=== PATIENT | female | born 1970 | race American Indian/Alaskan Native ===

== ENCOUNTER 2018-06-15 13:05 | Emergency (ER) | payer OTHER ==
[2018-06-15 13:13] VITALS: BMI 28.8
[2018-06-15 13:15] VITALS: PULSE 88; RESP 18; TEMP 99.2
[2018-06-15] MEDS ORDERED: Sodium Chloride 0.9% 1,000 ML IV STA (13:27)
--- NOTE | 2018-06-15 13:27 | ED PDOC ---
Arrival/HPI - General Chief Complaint: GI Problem Time Seen by Provider: 06/15/18 13:20 Historian: Patient - History of Present Illness Narrative History of Present Illness (Text): 06/15/18 13:28 A 48 year old female, whose past medical history includes , presents to the emergency department complaining of lower abdominal pain since this morning upon waking up. Patient reports she was in normal state of health yesterday. She explains earlier this morning also experiencing 2 episodes of watery diarrhea, and attempted to vomit, however only mucous came out. She mentions recently having a cold, stating having symptoms of coughing and rhinorrhea. Patient mentions never having abdominal pain in the past. LMP: 5-6 months ago, denies being . Notes last night drinking only a smoothie, nothing unusual. Patient denies vaginal bleeding/discharge, hematuria, back pain, or any other complaints at this time. Denies any sick contacts or any recent travel. PMD: Dr. Osmany Lara Time/Duration: Other (began earlier this morning upon waking up.) Symptom Onset: Sudden Symptom Course: Unchanged Past Medical History - Provider Review Nursing Documentation Reviewed: Yes - Infectious Disease Hx of Infectious Diseases: None - Neurological Hx Migraine: Yes - Psychiatric Hx Substance Use: No - Anesthesia Hx Anesthesia: No Family/Social History - Physician Review Nursing Documentation Reviewed: Yes Family/Social History: No Known Family HX Smoking Status: Heavy Smoker > 10 Cigarettes Daily Hx Alcohol Use: Yes Frequency of alcohol use: Socially Hx Substance Use: No Allergies/Home Meds Allergies/Adverse Reactions: Allergies No Known Allergies Allergy (Verified 06/16/18 18:26) Review of Systems - Review of Systems Constitutional: absent: Fevers Eyes: absent: Vision Changes Respiratory: absent: SOB Cardiovascular: absent: Chest Pain Gastrointestinal: Diarrhea, Nausea, Vomiting. absent: Abdominal Pain, Constipation, Appetite Changes, Hematochezia, Hematemesis Genitourinary Female: absent: Dysuria, Frequency Musculoskeletal: absent: Back Pain Skin: absent: Rash Neurological: absent: Headache, Dizziness, Focal Weakness Psychiatric: absent: Anxiety, Depression Physical Exam - Physical Exam Narrative Physical Exam (Text): Head: Atraumatic. Normocephalic. Eyes: PERRL. EOMI. Conjunctivae are not pale. ENT: Mucous membranes are moist and intact. Oropharynx is clear and symmetric. Neck: Supple. Full ROM. No JVD. No lymphadenopathy. Cardiovascular: Regular rate. Regular rhythm. No murmurs, rubs, or gallops. Distal pulses are 2+ and symmetric. Pulmonary/Chest: No evidence of respiratory distress. Clear to auscultation bilaterally. No wheezing, rales or rhonchi. Abdominal: Mild epigastric pain to palpation. Soft and non-distended. There is no tenderness. No rebound, guarding, or rigidity. No organomegaly. Good bowel sounds. Back: No CVA tenderness. Extremities: No edema. No cyanosis. No clubbing. Full range of motion in all extremities. No calf tenderness. Skin: Skin is warm and dry. No petechiae. No purpura. Neurological: Alert, awake, and oriented to person, place, time, and situation. Normal speech. No focal motor or sensory deficits. Psychiatric: Good eye contact. Normal interaction, affect, and behavior. 06/15/18 13:36 Vital Signs Reviewed: Yes Vital Signs Temp Pulse Resp BP Pulse Ox 06/15/18 16:45 88 18 122/71 99 06/15/18 13:13 99.2 F 88 18 115/75 96 Temperature: Afebrile Blood Pressure: Normal Pulse: Regular Respiratory Rate: Normal Appearance: Positive for: Well-Appearing, Non-Toxic, Comfortable Pain Distress: None Mental Status: Positive for: Alert and Oriented X 3 Medical Decision Making ED Course and Treatment: 06/15/18 13:31 Impression: 48 year old female with lower abdominal pain. Physical exam shows mild epigastric pain upon palpation. Differential Diagnosis included but are not limited to: Gastroenteritis vs. Colitis vs. Gastritis. Progress Notes: 06/15/18 13:37 Patient afebrile. Patient with very minimal pain on evaluation. Pain not colicky. No lower abdominal pain noted on exam despite complaint. No vaginal bleeding or discharge. Urinalysis is negative dip. Labs pending, will continue serial exams. 06/15/18 15:40 Patient on re-exam is laying in bed crying stating she has abdominal pain, cannot localize. States pain comes and goes. No song's sign noted. Initial LFTs unremarkable. Pain resolved after Toradol. CT scan ordered as patient with colicky pain develop ? renal colic within differential diagnosis. 05/15/2018 15:41 Abd/Pelvis CT IMPRESSION: There is mural thickening throughout the colon consistent with colitis. This may be a chronic finding with fatty deposition in the wall of the colon. Clinical correlation is suggested. There are no mesenteri inflammatory changes. Dictator: Manuel Ness MD I have reviewed abnormal findings with patient in laymens terms. She is comfortable on re-examination, ambulatory, no nausea or fever. I have recommended admission to hospital based on abnormal CT findings associated with intermittent discomfort for serial exams, gi consultation, further workup. She states she has pets to take care of home and wishes to go home. I have advised her of indications of admission and risks of signing out against medical advice she expresses understanding of abnormal findings and recommendations. 06/15/18 16:49 Leaving Against Medical Advice (AMA): The patient is choosing to leave against medical advice. I have personally explained to the patient that choosing to do so may result in permanent bodily harm or . I have discussed at great length that without further evaluation and monitoring there may be unforeseen circumstances and/or deterioration causing permanent bodily harm or as a result of their choice. The patient is alert, oriented, and shows the mental capacity to make clear decisions regarding the patients health care at this time. The patient continues to wish to leave against medical advice. In light of the patients decision to leave against medical advice, follow-up has been arranged and the patient is aware of the importance to following up as instructed. The patient has been advised that they should return to the emergency room immediately if they change their mind at any time, or if their condition begins to change or worsen in any way. 06/19/18 07:40 - Lab Interpretations Lab Results: 06/15/18 14:05 06/15/18 14:05 Lab Results 06/15/18 14:05: Sodium 141, Potassium 3.9, Chloride 105, Carbon Dioxide 25, Anion Gap 15, BUN 8, Creatinine 0.8, Est GFR ( Amer) > 60, Est GFR (Non- Af Amer) > 60, Random Glucose 108, Calcium 8.8, Total Bilirubin 0.3, AST 22, ALT 23, Alkaline Phosphatase 100, Total Protein 8.1, Albumin 4.5, Globulin 3.6, Albumin/Globulin Ratio 1.2, Amylase 63, Lipase 47 06/15/18 14:05: Urine Color Yellow, Urine Appearance Cloudy, Urine pH 6.0, Ur Specific [place] > 1.030, Urine Protein 30 H, Urine Glucose (UA) Neg, Urine Ketones Negative, Urine Blood Small H, Urine Nitrate Negative, Urine Bilirubin Negative, Urine Urobilinogen 0.2, Ur Leukocyte Esterase Negative, Urine RBC 5 - 10, Urine WBC 0 - 2, Ur Epithelial Cells 1 - 3, Amorphous Sediment Moderate, Urine Bacteria Many, Urine Other Uyeast, Urine HCG, Qual Negative 06/15/18 14:05: WBC 9.3, RBC 4.30, Hgb 13.3, Hct 38.6, MCV 89.8, MCH 30.9, MCHC 34.5, RDW 13.3, Plt Count 204, MPV 9.2, Gran % 77.0 H, Lymph % (Auto) 18.6 L, [place] % (Auto) 3.9, Eos % (Auto) 0.3 L, Baso % (Auto) 0.2, Gran # 7.17 H, Lymph # (Auto) 1.7, [place] # (Auto) 0.4, Eos # (Auto) 0.0, Baso # (Auto) 0.02 I have reviewed the lab results: Yes - RAD Interpretation Radiology Orders: 06/15/18 14:13 ABD & PELVIS W/O PO OR IV CONT [CT] Stat - Medication Orders Current Medication Orders: Discontinued Medications Famotidine (Pepcid) 20 mg IVP STAT STA Stop: 06/15/18 13:28 Last Admin: 06/15/18 13:56 Dose: 20 mg IVP Administration Document 06/15/18 13:56 EQ (Rec: 06/15/18 13:56 EQ [email or web address] Charges for Administration # of IVP Administrations 1 Sodium Chloride (Sodium Chloride 0.9%) 1,000 mls @ 1,000 mls/hr IV .Q1H STA Stop: 06/15/18 14:26 Last Admin: 06/15/18 13:56 Dose: 1,000 mls/hr eMAR Start Stop Document 06/15/18 13:56 EQ (Rec: 06/15/18 13:56 EQ [email or web address] Intravenous Solution Start Date 06/15/18 Start Time 13:56 Ketorolac Tromethamine (Toradol) 30 mg IVP ONCE ONE Stop: 06/15/18 14:14 Last Admin: 06/15/18 14:26 Dose: 30 mg MAR Pain Assessment Document 06/15/18 14:26 EQ (Rec: 06/15/18 14:26 EQ [email or web address] Pain Reassessment Is this a pain reassessment? No Sleep Is patient sleeping during reassessment? No Presence of Pain Presence of Pain Yes IVP Administration Document 06/15/18 14:26 EQ (Rec: 06/15/18 14:26 EQ [email or web address] Charges for Administration # of IVP Administrations 1 - Scribe Statement The provider has reviewed the documentation as recorded by the Scribe Ivonne rAguello Provider Scribe Provider Scribe Attestation: All medical record entries made by the Scribe were at my direction and personally dictated by me. I have reviewed the chart and agree that the record accurately reflects my personal performance of the history, physical exam, medical decision making, and the department course for this patient. I have also personally directed, reviewed, and agree with the discharge instructions and disposition. Disposition/Present on Arrival - Present on Arrival Any Indicators Present on Arrival: No History of DVT/PE: No History of Uncontrolled Diabetes: No Urinary Catheter: No History of Decub. Ulcer: No History Surgical Site Infection Following: None - Disposition Have Diagnosis and Disposition been Completed?: Yes Diagnosis: Colitis, Abdominal pain Disposition: AGAINST MEDICAL ADVICE Disposition Time: 16:40 Patient Plan: Discharge Patient Problems: Current Active Problems Problem Status Onset Abdominal pain Acute Gastroenteritis Acute Hypokalemia Acute Nausea vomiting and diarrhea Acute Condition: GOOD Additional Instructions: It has been recommended to you that you be ADMITTED TO THE HOSPITAL for evaluation of abnormal CT scan and signs of "colitis". Risks have been reviewed with you. Outpatient antibiotic treatment is not felt to be sufficient for treatment due to the severity of pain that you have had. Please return immediately to the ER at any time for treatment. Prescriptions: Metronidazole 500 mg PO TID #21 tablet Referrals: Osmany Lara MD [Primary Care Provider] - Follow up with primary Forms: [employer] (Setswana)
[2018-06-15 14:13] LABS: URINE BILIRUBIN NEGATIVE (NEGATIVE); URINE COLOR YELLOW (YELLOW); URINE LEUKOCYTE ESTERASE NEGATIVE Leu/uL (NEGATIVE); URINE UROBILINOGEN 0.2 E.U./dL (<1 E.U./dL)
[2018-06-15 14:17] LABS: BASO # 0.02 K/mm3 (0.0-2.0); BASO % 0.2 % (0.0-3.0); EOS % 0.3 % (1.5-5.0); GRAN # 7.17 (1.4-6.5); HEMOGLOBIN 13.3 g/dL (12.0-16.0); LYMPH # 1.7 (1.2-3.4); LYMPH % 18.6 % (22.0-35.0); MEAN CELL VOLUME 89.8 fl (80.0-105.0); MEAN CORPUSCULAR HEMOGLOBIN 30.9 pg (25.0-35.0); MEAN CORPUSCULAR HGB CONC 34.5 g/dl (31.0-37.0); MEAN PLATELET VOLUME 9.2 fl (7.0-11.0); MONO # 0.4 (0.1-0.6); MONO % 3.9 % (1.0-6.0); RBC 4.3 10^6/uL (3.5-6.1); RED CELL DISTRIBUTION WIDTH 13.3 % (11.5-14.5); WHITE BLOOD COUNT 9.3 10^3/ul (4.5-11.0)
[2018-06-15 14:23] LABS: URINE APPEARANCE CLOUDY (CLEAR)
[2018-06-15 14:24] LABS: ALB/GLOB RATIO 1.2 (1.1-1.8); ALBUMIN 4.5 g/dL (3.0-4.8); ALT/SGPT 23 U/L (7-56); AMYLASE 63 U/L (35-125); AST/SGOT 22 U/L (14-36); BLOOD UREA NITROGEN 8 mg/dL (7-21); CALCIUM 8.8 mg/dL (8.4-10.5); GFR AFRICAN-AMERICAN > 60; GFR NON-AFRICAN AMERICAN > 60; LIPASE 47 U/L (23-300); URINE GLUCOSE (UA) NEG (NEGATIVE)
[2018-06-15 14:25] LABS: URINE BLOOD SMALL (NEGATIVE); URINE PROTEIN 30 mg/dL (<30 mg/dL)
[2018-06-15 14:29] LABS: HCG,QUALITATIVE URINE NEGATIVE (NEGATIVE); URINE AMORPHOUS SEDIMENT MODERATE; URINE BACTERIA MANY (NEG); URINE WBC 0 - 2 /hpf (0-6)
--- NOTE | 2018-06-15 15:42 | CT ---
Date of service: 06/15/2018 PROCEDURE: CT Abdomen and Pelvis without intravenous contrast HISTORY: severe colicky abdominal pain COMPARISON: None. TECHNIQUE: Without contrast. Contrast dose: Radiation dose: Total exam DLP = 684 mGy-cm. This CT exam was performed using one or more of the following dose reduction techniques: Automated exposure control, adjustment of the mA and/or kV according to patient size, and/or use of iterative reconstruction technique. FINDINGS: LOWER THORAX: Unremarkable. LIVER: Unremarkable. No gross lesion or ductal dilatation. GALLBLADDER AND BILE DUCTS: Unremarkable. PANCREAS: Unremarkable. No gross lesion or ductal dilatation. SPLEEN: Unremarkable. ADRENALS: Unremarkable. No mass. KIDNEYS AND URETERS: Unremarkable. No hydronephrosis. No solid mass. VASCULATURE: Unremarkable. No aortic aneurysm. BOWEL: There is mural thickening throughout the colon consistent with colitis. This may be a chronic finding with fatty deposition in the wall of the colon. Clinical correlation is suggested. There are no mesenteric inflammatory changes APPENDIX: Unremarkable. Normal appendix. PERITONEUM: Unremarkable. No free fluid. No free air. LYMPH NODES: Unremarkable. No enlarged lymph nodes. BLADDER: Unremarkable. REPRODUCTIVE: Unremarkable. BONES: No acute fracture. OTHER FINDINGS: None. IMPRESSION: There is mural thickening throughout the colon consistent with colitis. This may be a chronic finding with fatty deposition in the wall of the colon. Clinical correlation is suggested. There are no mesenteric inflammatory changes
[2018-06-15 17:45] VITALS: BP 122/71; O2SAT 99
== END 2018-06-15 17:27 | disposition left against medical advice (07) ==
LOC: ED 13:05
DX: K52.9 Noninfective gastroenteritis and colitis, unspecified (principal); R10.30 Lower abdominal pain, unspecified; F17.210 Nicotine dependence, cigarettes, uncomplicated
CPT/HCPCS: 74176; 80053; 81001; 82150; 83690; 84703; 85025; 96374; 96375; 99285; J1885; J7030

== ENCOUNTER 2018-06-16 18:16 | Inpatient (IN) | payer OTHER ==
[2018-06-16 18:31] VITALS: BMI 29.0
[2018-06-16] MEDS ORDERED: Sodium Chloride 0.9% 1,000 ML IV STA (18:35)
--- NOTE | 2018-06-16 18:39 | ED PDOC ---
Arrival/HPI - General Chief Complaint: GI Problem Time Seen by Provider: 06/16/18 18:24 Historian: Patient - History of Present Illness Narrative History of Present Illness (Text): 06/16/18 18:36 A 48 year old female, with no significant past medical history, presents to the emergency department with a complaint of 1 day duration abdominal pain, nausea, vomiting, and diarrhea. The patient reports that she was seen in the emergency department yesterday and advised admission, but the patient refused and signed out against medical advice. She denies travel or exposure. Her test from yesterday's visit was negative and her CT scan showed colitis. The patient is a smoker, non- drinker/drug user. The patient denies fevers, chills, headache , dizziness, sore throat, cough, chest pain, shortness of breath, dyspnea on exertion, neck/back pain, urinary changes or any other complaint. PMD: Dr. Lara Time/Duration: Other (Yesterday) Symptom Onset: Sudden Symptom Course: Unchanged Activities at Onset: Rest, Light Context: Home Associated Symptoms (Text): 06/16/18 18:47 Generalized crampy abdominal pain along with nausea vomiting and diarrhea beginning yesterday morning. She was seen in the emergency department yesterday and had a CT scan which showed colitis. She was advised admission but signed out AMA. Her test yesterday was negative. No fever or chills. No travel or exposure. No genitourinary symptoms. Patient reports she has not eaten since yesterday morning because of the severe vomiting and diarrhea. She does not appear dehydrated. Past Medical History - Provider Review Nursing Documentation Reviewed: Yes - Infectious Disease Hx of Infectious Diseases: None - Neurological Hx Migraine: Yes - Psychiatric Hx Substance Use: No - Anesthesia Hx Anesthesia: No Family/Social History - Physician Review Nursing Documentation Reviewed: Yes Family/Social History: No Known Family HX Smoking Status: Heavy Smoker > 10 Cigarettes Daily Hx Alcohol Use: Yes Frequency of alcohol use: Socially Hx Substance Use: No Allergies/Home Meds Allergies/Adverse Reactions: Allergies No Known Allergies Allergy (Verified 06/16/18 18:26) Review of Systems - Physician Review All systems were reviewed & negative as marked: Yes - Review of Systems Constitutional: absent: Fatigue, Fevers Respiratory: absent: SOB, Cough Cardiovascular: absent: Chest Pain, MORAN Gastrointestinal: Abdominal Pain, Diarrhea, Nausea, Vomiting. absent: Constipation Genitourinary Female: absent: Dysuria, Frequency, Hematuria, Urine Output Changes, Vaginal Bleeding (LMP 6 months ago), Vaginal Discharge Musculoskeletal: absent: Back Pain, Neck Pain Skin: absent: Rash Neurological: absent: Headache, Dizziness Physical Exam Vital Signs Temp Pulse Resp BP Pulse Ox 06/16/18 19:04 98.4 F 72 18 95 06/16/18 19:03 125/69 Temperature: Afebrile Blood Pressure: Normal Pulse: Regular Respiratory Rate: Normal Appearance: Positive for: Well-Appearing, Non-Toxic, Uncomfortable Pain Distress: Mild Mental Status: Positive for: Alert and Oriented X 3 - Systems Exam Head: Present: Atraumatic, Normocephalic Pupils: Present: PERRL Extroacular Muscles: Present: EOMI Conjunctiva: Present: Normal Mouth: Present: Moist Mucous Membranes Pharnyx: No: ERYTHEMA, EXUDATE, TONSILS ENLARGED Neck: Present: Normal Range of Motion Respiratory/Chest: Present: Clear to Auscultation, Good Air Exchange. No: Respiratory Distress, Accessory Muscle Use Cardiovascular: Present: Regular Rate and Rhythm, Normal S1, S2. No: Murmurs Abdomen: Present: Tenderness (Mild generalized abdominal tenderness ), Normal Bowel Sounds. No: Distention, Peritoneal Signs, Rebound, Guarding Back: Present: Normal Inspection. No: CVA Tenderness Upper Extremity: Present: Normal Inspection. No: Cyanosis, Edema Lower Extremity: Present: Normal Inspection. No: Edema Neurological: Present: GCS=15, CN II-XII Intact, Speech Normal, Motor Func Grossly Intact Skin: Present: Warm, Dry, Normal Color. No: Rashes Psychiatric: Present: Alert, Oriented x 3, Normal Insight, Normal Concentration Medical Decision Making ED Course and Treatment: 06/16/18 18:40 Impression: A 48 year old female presents to the emergency department with a complain of 1 day duration abdominal pain, nausea, vomiting, diarrhea. Plan: -- Labs -- Stool Culture -- Protonix, Toradol, Zofran, and IV Fluids -- Reassess and disposition Progress Notes: 06/16/18 19:44 Patient is feeling somewhat better, but does not feel as if she can go home. She does not appear ill. Her CT scan yesterday showed colitis only. I will make arrangements for medical observation. 06/16/18 20:04: Case discussed in detail with Dr. Chao, who requested that the hospitalist admit the patient. 06/16/18 20:09: Case discussed with medical voucher clerk. 06/16/18 20:25: Case discussed with Dr. Holm who will evaluate patient in the emergency department. - Lab Interpretations Lab Results: 06/16/18 18:55 06/16/18 18:55 Lab Results 06/16/18 18:55: Sodium 140, Potassium 3.3 L, Chloride 108 H, Carbon Dioxide 22, Anion Gap 13, BUN 6 L, Creatinine 0.6 L, Est GFR ( Amer) > 60, Est GFR ( Non-Af Amer) > 60, Random Glucose 107, Calcium 8.6, Magnesium 2.1, Total Bilirubin 0.3, AST 25, ALT 32, Alkaline Phosphatase 93, Total Protein 7.6, Albumin 4.1, Globulin 3.5, Albumin/Globulin Ratio 1.2, Lipase 49 06/16/18 18:55: WBC 6.8 D, RBC 4.11, Hgb 12.8, Hct 36.5, MCV 88.8, MCH 31.1, MCHC 35.1, RDW 12.9, Plt Count 191, MPV 9.6, Gran % 66.5, Lymph % (Auto) 27.5, [place] % (Auto) 4.4, Eos % (Auto) 1.5, Baso % (Auto) 0.1, Gran # 4.50, Lymph # ( Auto) 1.9, [place] # (Auto) 0.3, Eos # (Auto) 0.1, Baso # (Auto) 0.01 I have reviewed the lab results: Yes - Medication Orders Current Medication Orders: Discontinued Medications Sodium Chloride (Sodium Chloride 0.9%) 1,000 mls @ 1,000 mls/hr IV .Q1H STA Stop: 06/16/18 19:34 Last Admin: 06/16/18 19:00 Dose: 1,000 mls/hr eMAR Start Stop Document 06/16/18 19:00 GMI (Rec: 06/16/18 19:00 GMI [id number]) Intravenous Solution Start Date 06/16/18 Start Time 19:00 Ketorolac Tromethamine (Toradol) 15 mg IVP STAT STA Stop: 06/16/18 18:36 Last Admin: 06/16/18 19:28 Dose: 15 mg MAR Pain Assessment Document 06/16/18 19:28 CNR (Rec: 06/16/18 19:28 [id number] Pain Reassessment Is this a pain reassessment? No IVP Administration Document 06/16/18 19:28 CNR (Rec: 06/16/18 19:28 [id number] Charges for Administration # of IVP Administrations 1 Ondansetron HCl (Zofran Inj) 4 mg IVP STAT STA Stop: 06/16/18 18:36 Last Admin: 06/16/18 18:58 Dose: 4 mg IVP Administration Document 06/16/18 18:58 GMI (Rec: 06/16/18 18:59 GMI [id number]) Charges for Administration # of IVP Administrations 1 Pantoprazole Sodium (Protonix Inj) 40 mg IVP STAT STA Stop: 06/16/18 18:36 Last Admin: 06/16/18 19:28 Dose: 40 mg IVP Administration Document 06/16/18 19:28 CNR (Rec: 06/16/18 19:28 CNR [id number]) Charges for Administration # of IVP Administrations 1 Potassium Chloride (K-Dur 20 Meq Er Tab) 20 meq PO STAT STA Stop: 06/16/18 19:38 Last Admin: 06/16/18 19:45 Dose: 20 meq - Scribe Statement The provider has reviewed the documentation as recorded by the Tessy Maier Provider Scribe Attestation: All medical record entries made by the Tessy were at my direction and personally dictated by me. I have reviewed the chart and agree that the record accurately reflects my personal performance of the history, physical exam, medical decision making, and the department course for this patient. I have also personally directed, reviewed, and agree with the discharge instructions and disposition. Disposition/Present on Arrival - Present on Arrival Any Indicators Present on Arrival: No History of DVT/PE: No History of Uncontrolled Diabetes: No Urinary Catheter: No History of Decub. Ulcer: No History Surgical Site Infection Following: None - Disposition Have Diagnosis and Disposition been Completed?: Yes Diagnosis: Abdominal pain, Hypokalemia, Gastroenteritis, Nausea vomiting and diarrhea Disposition: HOSPITALIZED Disposition Time: 20:13 Patient Plan: Observation Patient Problems: Current Active Problems Problem Status Onset Abdominal pain Acute Gastroenteritis Acute Hypokalemia Acute Nausea vomiting and diarrhea Acute Condition: GOOD
[2018-06-16 19:09] LABS: BASO # 0.01 K/mm3 (0.0-2.0); BASO % 0.1 % (0.0-3.0); EOS # 0.1 (0.0-0.7); EOS % 1.5 % (1.5-5.0); GRAN # 4.5 (1.4-6.5); GRAN % 66.5 % (50.0-68.0); HEMOGLOBIN 12.8 g/dL (12.0-16.0); LYMPH # 1.9 (1.2-3.4); LYMPH % 27.5 % (22.0-35.0); MEAN CELL VOLUME 88.8 fl (80.0-105.0); MEAN CORPUSCULAR HEMOGLOBIN 31.1 pg (25.0-35.0); MEAN CORPUSCULAR HGB CONC 35.1 g/dl (31.0-37.0); MEAN PLATELET VOLUME 9.6 fl (7.0-11.0); MONO # 0.3 (0.1-0.6); MONO % 4.4 % (1.0-6.0); RBC 4.11 10^6/uL (3.5-6.1); RED CELL DISTRIBUTION WIDTH 12.9 % (11.5-14.5); WHITE BLOOD COUNT 6.8 10^3/ul (4.5-11.0)
[2018-06-16 19:14] LABS: ALB/GLOB RATIO 1.2 (1.1-1.8); ALBUMIN 4.1 g/dL (3.0-4.8); ALT/SGPT 32 U/L (7-56); AST/SGOT 25 U/L (14-36); BLOOD UREA NITROGEN 6 mg/dL (7-21); CALCIUM 8.6 mg/dL (8.4-10.5); GFR AFRICAN-AMERICAN > 60; GFR NON-AFRICAN AMERICAN > 60; LIPASE 49 U/L (23-300)
[2018-06-16] MEDS ORDERED: Potassium Chloride 20 mEq ER Tab PO STA (19:37)
--- NOTE | 2018-06-16 21:59 | CP.PCM.HP ---
History of Present Illness - History of Present Illness History of Present Illness: HPI for Dr Jose Luis Pratt D.O. PGY-1 C.C: abdmoinal pain with N/V/D HPI: 48 y/o female presents to the ED for mid abdominal pain for 3 days, 8/10, squeezing, no radiation, intermittent, no worsening or alleviating factors. Pain is associated with nausea, NBNB vomiting, watery diarrhea. Patient admits to having URI symptoms few days prior to these symptoms. She denied having similar symptoms in the past, no recent travel, no sick contacts but admits to having a dog, cat, turtle, and fish at her home. Patient visited [facility] yesterday for the same symptoms and refused admission and signed AMA as she has animals at home to feed as she stated. Patient left ED yesterday with Metronidazole prescription and took one dosethat caused her stomach upset and had to come to ED again. CT abdomen/pelvis done yesterday that showed colitis. Patient denied syptoms, fever, chills, hematemesis, hematochezia, cp, palpitation, rash, weight loss. PMH:migraine headache PSH:denied SocH: smoker, no alcohol, no drugs MEDS: none ALL: NKDA PMD: Dr Osmany Lara Present on Admission - Present on Admission Any Indicators Present on Admission: No Review of Systems - Constitutional Constitutional: absent: Chills, Fever, Headache, Malaise, Night Sweats, Weakness - EENT Eyes: absent: Diplopia, Discharge, Itchy Eyes, Loss of Peripheral Vision Ears: absent: Decreased Hearing, Ear Discharge Nose/Mouth/Throat: absent: Nasal Congestion, Nasal Trauma, Nose Pain - Cardiovascular Cardiovascular: absent: Chest Pain, Claudication, Diaphoresis, Orthopnea, Palpitations - Respiratory Respiratory: absent: Cough, Dyspnea, Dyspnea on Exertion - Gastrointestinal Gastrointestinal: Abdominal Pain, Cramping, Diarrhea, Nausea, Vomiting - Genitourinary Genitourinary: absent: Difficulty Urinating, Dysuria, Hematuria, Pyuria, Freq UTI - Menstruation Menstruation: absent: Amenorrhea - Musculoskeletal Musculoskeletal: absent: Arthralgias, Atrophy, Joint Swelling, Muscle Weakness, Myalgias, Neck Pain - Integumentary Integumentary: absent: Bleeding Lesions, Lesions, Rash - Neurological Neurological: absent: Dizziness, Numbness, Headaches, Tingling, Tremor - Psychiatric Psychiatric: absent: Anxiety, Hopelessness, Panic Attacks - Endocrine Endocrine: absent: Flushing, Polydipsia, Polyphagia, Polyuria - Hematologic/Lymphatic Hematologic: absent: Easy Bleeding, Easy Bruising Past Patient History - Infectious Disease Hx of Infectious Diseases: None - Past Social History Smoking Status: Heavy Smoker > 10 Cigarettes Daily - NEUROLOGICAL Hx Migraine: Yes - PSYCHIATRIC Hx Substance Use: No - SURGICAL HISTORY Hx Surgeries: No - ANESTHESIA Hx Anesthesia: No Meds Allergies/Adverse Reactions: Allergies Allergy/AdvReac Type Severity Reaction Status Date / Time No Known Allergies Allergy Verified 06/16/18 18:26 Physical Exam - Constitutional Appears: Non-toxic, In Acute Distress - Head Exam Head Exam: ATRAUMATIC, NORMAL INSPECTION, NORMOCEPHALIC - Eye Exam Eye Exam: EOMI, Normal appearance, PERRL Pupil Exam: NORMAL ACCOMODATION, PERRL - ENT Exam ENT Exam: Mucous Membranes Dry, Normal Oropharynx - Neck Exam Neck exam: Positive for: Normal Inspection - Respiratory Exam Respiratory Exam: Clear to Auscultation Bilateral, NORMAL BREATHING PATTERN - Cardiovascular Exam Cardiovascular Exam: REGULAR RHYTHM, +S1, +S2 - GI/Abdominal Exam GI & Abdominal Exam: Guarding, Hyperactive Bowel Sounds, Soft, Tenderness. absent: Bruit, Mass, Rebound - Extremities Exam Extremities exam: Negative for: calf tenderness, joint swelling, tenderness - Back Exam Back exam: NORMAL INSPECTION - Neurological Exam Neurological exam: Alert, CN II-XII Intact, Normal Gait, Oriented x3, Reflexes Normal - Skin Skin Exam: Dry, Intact, Normal Color, Warm Results - Vital Signs Recent Vital Signs: Last Vital Signs Temp 98.4 F 06/16/18 19:04 Pulse 72 06/16/18 19:04 Resp 18 06/16/18 19:04 BP 125/69 06/16/18 19:03 Pulse Ox 95 06/16/18 19:04 - Labs Result Diagrams: 06/17/18 06:45 06/17/18 06:45 Assessment & Plan - Assessment and Plan (Free Text) Assessment: 48 y/o female presents to the ED for abdominal pain x1 day associtaed with N/V/ D. CT abdomen shows colitis Plan: 1)Abominal pain: Likely viral gastroenteritis NPO Zofran N/V Morphine 2 mg pain prn Ketorolac 15 mg pain prn CBC, CMP NS @100 ML/hr fecal leukocytosis C diff ag culture stool, urine Urine tox FOBT test negative GI consulted 2)Hypokalemia K 3.3 K-dur given Protonix SCD Liquid diet vitals q8hr Case reviewed and discussed with the attenting Dr Holm. - Date & Time Date: 06/16/18 Time: 21:59
[2018-06-16] MEDS: Sodium Chloride 0.9% 1,000 ML IV SCH (23:10)
[2018-06-16 23:19] LABS: URINE BILIRUBIN SMALL (NEGATIVE); URINE BLOOD TRACE-INTACT (NEGATIVE); URINE GLUCOSE (UA) NEGATIVE (NEGATIVE); URINE LEUKOCYTE ESTERASE NEGATIVE Leu/uL (NEGATIVE); URINE PROTEIN 30 mg/dL (<30 mg/dL); URINE UROBILINOGEN 0.2 E.U./dL (<1 E.U./dL)
[2018-06-16 23:23] LABS: URINE APPEARANCE SL CLOUDY (CLEAR); URINE COLOR YELLOW (YELLOW)
[2018-06-16 23:35] LABS: URINE BACTERIA MOD (NEG); URINE WBC 0 - 2 /hpf (0-6)
[2018-06-17] MEDS: Morphine 4 mg/ml ISec IVP PRN ×5 (00:06→20:29)
[2018-06-17 07:25] LABS: BASO # 0.01 K/mm3 (0.0-2.0); BASO % 0.2 % (0.0-3.0); EOS # 0.2 (0.0-0.7); EOS % 4.2 % (1.5-5.0); GRAN # 3.17 (1.4-6.5); GRAN % 57.8 % (50.0-68.0); HEMOGLOBIN 11.4 g/dL (12.0-16.0); LYMPH # 1.7 (1.2-3.4); LYMPH % 30.7 % (22.0-35.0); MEAN CORPUSCULAR HEMOGLOBIN 30.6 pg (25.0-35.0); MEAN CORPUSCULAR HGB CONC 34.3 g/dl (31.0-37.0); MEAN PLATELET VOLUME 9.4 fl (7.0-11.0); MONO # 0.4 (0.1-0.6); MONO % 7.1 % (1.0-6.0); RBC 3.73 10^6/uL (3.5-6.1); RED CELL DISTRIBUTION WIDTH 13.1 % (11.5-14.5); WHITE BLOOD COUNT 5.5 10^3/ul (4.5-11.0)
[2018-06-17 07:44] LABS: ALB/GLOB RATIO 1.1 (1.1-1.8); ALBUMIN 3.2 g/dL (3.0-4.8); ALT/SGPT 20 U/L (7-56); AST/SGOT 19 U/L (14-36); BLOOD UREA NITROGEN 7 mg/dL (7-21); GFR AFRICAN-AMERICAN > 60; GFR NON-AFRICAN AMERICAN > 60
[2018-06-17 07:49] LABS: BARBITURATES, UR NEGATIVE (NEGATIVE); BENZODIAZEPINES, UR NEGATIVE (NEGATIVE); OPIATES, UR POSITIVE (NEGATIVE); PHENCYCLIDINE, UR NEGATIVE (NEGATIVE)
[2018-06-17] MEDS: metroNIDAZOLE IV 500 mg/100 ml 500 MG/100 ML BAG IVPB SCH ×3 (08:18→21:30)
[2018-06-17] MEDS: cefTRIAXone 1 gm 1 GM/100 ML BAG IVPB SCH ×2 (08:22→10:49)
[2018-06-17] MEDS: Sodium Chloride 0.9% 1,000 ML IV SCH ×2 (08:27→21:30)
[2018-06-17] MEDS ORDERED: Potassium Chloride 20 mEq ER Tab PO ONE (11:49)
--- NOTE | 2018-06-17 15:18 | CP.PCM.PN ---
<Nadir Cai - Last Filed: 06/17/18 15:15> Subjective - Date & Time of Evaluation Date of Evaluation: 06/17/18 Time of Evaluation: 10:00 - Subjective Subjective: PGY-[address] Muse. No acute events ntoed overnight. Patient still with nausea, vomiting and 1 episode of diarrhea this morning. She stated she saw blood on her toilet paper after wiping. Still complaining of left-sided abdominal pain. Attempted to eat breakfast but became nauseous. Denied chest pain, shortness of breath, fevers. Objective - Vital Signs/Intake and Output Vital Signs (last 24 hours): Temp Pulse Resp BP Pulse Ox 98.5 F 71 20 109/66 96 06/17/18 08:38 06/17/18 08:38 06/17/18 08:38 06/17/18 08:38 06/17/18 08:38 Intake and Output: 06/17/18 06/17/18 06:59 18:59 Intake Total 840 240 Balance 840 240 - Medications Medications: Current Medications Sodium Chloride (Sodium Chloride 0.9%) 1,000 mls @ 100 mls/hr IV .Q10H [facility] Last Admin: 06/17/18 08:27 Dose: 100 mls/hr Metronidazole (Flagyl) 500 mg in 100 mls @ 100 mls/hr IVPB Q8 [facility] PRN Reason: Protocol Last Admin: 06/17/18 13:38 Dose: 100 mls/hr Ceftriaxone Sodium (Rocephin 1 Gram Ivpb) 1 gm in 100 mls @ 100 mls/hr IVPB DAILY [facility] PRN Reason: Protocol Last Admin: 06/17/18 10:49 Dose: Not Given Morphine Sulfate (Morphine) 2 mg IVP Q4H PRN PRN Reason: Pain, moderate (4-7) Last Admin: 06/17/18 15:02 Dose: 2 mg Ondansetron HCl (Zofran Inj) 4 mg IVP Q6H PRN PRN Reason: Nausea/Vomiting - Labs Labs: 06/17/18 06:45 06/17/18 06:45 - Additional Findings Additional findings: - Constitutional Appears: Non-toxic, In Acute Distress - Head Exam Head Exam: ATRAUMATIC, NORMAL INSPECTION, NORMOCEPHALIC - Eye Exam Eye Exam: EOMI, Normal appearance, PERRL Pupil Exam: NORMAL ACCOMODATION, PERRL - ENT Exam ENT Exam: Mucous Membranes Dry, Normal Oropharynx - Neck Exam Neck exam: Positive for: Normal Inspection - Respiratory Exam Respiratory Exam: Clear to Auscultation Bilateral, NORMAL BREATHING PATTERN - Cardiovascular Exam Cardiovascular Exam: REGULAR RHYTHM, +S1, +S2 - GI/Abdominal Exam GI & Abdominal Exam: Hyperactive Bowel Sounds, Soft, left sided abdominal Tenderness. absent: Bruit, Mass, Rebound - Extremities Exam Extremities exam: Negative for: calf tenderness, joint swelling, tenderness - Back Exam Back exam: NORMAL INSPECTION - Neurological Exam Neurological exam: Alert, CN II-XII Intact, Normal Gait, Oriented x3, Reflexes Normal - Skin Skin Exam: Dry, Intact, Normal Color, Warm Assessment and Plan - Assessment and Plan (Free Text) Assessment: 48 y/o female with no significant PMHx presents to the ED for abdominal pain x1 day with N/V/D. CT abdomen from previous day prior to presentation showed colitis throughout the colon. Plan: Colitis -CT abd/pelvis w/o contrast showed: There is mural thickening throughout the colon consistent with colitis. This may be a chronic finding with fatty deposition in the wall of the colon. Clinical correlation is suggested. -Start metronidazole 500mg iv q8h -Start ceftriaxone 1g ivp qd -Morphine 2mg ivp q4h prn for pain -zofran 4mg ivp q6h prn for nausea/vomiting -liquid diet for now, advance as tolerated -esr elevated, cdiff negative, uds negative (collected after receiving morphine in ED thus positive for opiates), serum alcohol negative, lipase negative -stool occult positive * denies blood in stool, admits to streaks of blood on toilet paper -follow-up crp, stool culture, fecal leukocytes -GI consulted, Dr Carter Hypokalemia -secondary to vomiting -repleted, follow-up AM levels Prophylaxis Protonix 40mg iv qd SCD Liquid diet <Kristy Muse - Last Filed: 06/17/18 16:23> Objective - Vital Signs/Intake and Output Vital Signs (last 24 hours): Temp Pulse Resp BP Pulse Ox 98.5 F 71 20 109/66 96 06/17/18 08:38 06/17/18 08:38 06/17/18 08:38 06/17/18 08:38 06/17/18 08:38 Intake and Output: 06/17/18 06/17/18 06:59 18:59 Intake Total 840 240 Balance 840 240 - Medications Medications: Current Medications Sodium Chloride (Sodium Chloride 0.9%) 1,000 mls @ 100 mls/hr IV .Q10H [facility] Last Admin: 06/17/18 08:27 Dose: 100 mls/hr Metronidazole (Flagyl) 500 mg in 100 mls @ 100 mls/hr IVPB Q8 [facility] PRN Reason: Protocol Last Admin: 06/17/18 13:38 Dose: 100 mls/hr Ceftriaxone Sodium (Rocephin 1 Gram Ivpb) 1 gm in 100 mls @ 100 mls/hr IVPB DAILY [facility] PRN Reason: Protocol Last Admin: 06/17/18 10:49 Dose: Not Given Morphine Sulfate (Morphine) 2 mg IVP Q4H PRN PRN Reason: Pain, moderate (4-7) Last Admin: 06/17/18 15:02 Dose: 2 mg Ondansetron HCl (Zofran Inj) 4 mg IVP Q6H PRN PRN Reason: Nausea/Vomiting Pantoprazole Sodium (Protonix Inj) 40 mg IVP DAILY [facility] - Labs Labs: 06/17/18 06:45 06/17/18 06:45 Attending/Attestation - Attestation I have personally seen and examined this patient.: Yes I have fully participated in the care of the patient.: Yes I have reviewed all pertinent clinical information, including history, physical exam and plan: Yes Notes (Text): 06/17/18 16:20 58 year old female with no significant past medical history who presented with complaint of abdominal pain with nausea, vomiting and diarrhea. CT abd/pelvis shows mural thickening throughout the colon consistent with colitis. She is on iv antibiotics. CDif study is negative. Continue with liquid diet and advance as tolerated. GI evaluation is pending. Will replete and repeat lytes. Kristy Muse MD Hospitalist.
[2018-06-18] MEDS: Morphine 2 mg/ml ISec IVP PRN ×3 (00:27→17:21)
[2018-06-18] MEDS ORDERED: Morphine 2 mg/ml ISec IVP ONE (02:33)
[2018-06-18] MEDS ORDERED: Pantoprazole 20 mg EC Tab PO SCH (06:00)
[2018-06-18] MEDS: metroNIDAZOLE IV 500 mg/100 ml 500 MG/100 ML BAG IVPB SCH ×3 (06:48→22:30)
[2018-06-18 07:54] LABS: BASO # 0.01 K/mm3 (0.0-2.0); BASO % 0.2 % (0.0-3.0); EOS # 0.2 (0.0-0.7); EOS % 3.8 % (1.5-5.0); GRAN # 3.31 (1.4-6.5); GRAN % 54.6 % (50.0-68.0); HEMOGLOBIN 10.7 g/dL (12.0-16.0); LYMPH % 33.3 % (22.0-35.0); MEAN CELL VOLUME 87.5 fl (80.0-105.0); MEAN CORPUSCULAR HEMOGLOBIN 29.6 pg (25.0-35.0); MEAN CORPUSCULAR HGB CONC 33.9 g/dl (31.0-37.0); MEAN PLATELET VOLUME 9.8 fl (7.0-11.0); MONO # 0.5 (0.1-0.6); MONO % 8.1 % (1.0-6.0); RBC 3.61 10^6/uL (3.5-6.1); RED CELL DISTRIBUTION WIDTH 12.7 % (11.5-14.5); WHITE BLOOD COUNT 6.1 10^3/ul (4.5-11.0)
[2018-06-18 08:00] LABS: ALBUMIN 3.2 g/dL (3.0-4.8); ALT/SGPT 31 U/L (7-56); AST/SGOT 19 U/L (14-36); BLOOD UREA NITROGEN 4 mg/dL (7-21); CALCIUM 8.1 mg/dL (8.4-10.5); GFR AFRICAN-AMERICAN > 60; GFR NON-AFRICAN AMERICAN > 60
--- NOTE | 2018-06-18 08:05 | CP.PCM.CON ---
<Christiano Rowan - Last Filed: 06/18/18 11:27> History of Present Illness - History of Present Illness History of Present Illness: Gastroenterology Consult note For Dr. Raul Rowan PGY2 Chief Complaint: Abdominal pain Patient is a 48 F with a history of migraine headaches who presented with complaints of diarrhea and abdominal pain. Patient states night prior to bed she consumed a smoothie which consisted of orange juice and frozen fruit. She admits to diarrhea through the night into Monday when the abdominal pain was also present with diarrhea. Patient states the "twisting" abdominal pain was initially RLQ bilaterally without radiation, 10/10 on a pain scale, and exacerbated with movements. Patient states she took tylenol extra strength for relief however was unsuccessful. Patient states she went to the ED where she was told she had colitis and was given flagyl. However patient states she took two doses but still experienced a large amount of pain and decided to come back to the ED since she wasn't given any pain medications. Patient then returned Monday where she was admitted. At this point patient states the diarrhea had begin to improve slightly however the abdominal pain was still present. Over night patient admits to one episode of diarrhea and states the pain is currently 4/10. Patient has had no episodes of diarrhea overnight and is not nauseous. Denies fevers, chills, or previous episodes as such. Lab values: H&H on admission 13.3/38.6 now 10.7/31.6, ESR 33, Potassium 3.2, CRP >15, corrected calcium 8.7, AST 19, ALT 31 Imaging: CT abdomen/pelvis:There is mural thickening throughout the colon consistent with colitis. This may be a chronic finding with fatty deposition in the wall of the colon. Clinical correlation is suggested. There are no mesenteric inflammatory changes Review of Systems - Constitutional Constitutional: absent: Chills, Fever, Headache - Cardiovascular Cardiovascular: absent: Chest Pain, Dyspnea - Respiratory Respiratory: absent: Cough, Dyspnea - Gastrointestinal Gastrointestinal: Abdominal Pain, Diarrhea. absent: Constipation, Hematochezia , Melena, Nausea, Vomiting - Genitourinary Genitourinary: absent: Dysuria - Musculoskeletal Musculoskeletal: absent: Numbness - Neurological Neurological: absent: Dizziness - Psychiatric Psychiatric: absent: Anxiety - Endocrine Endocrine: Fatigue Past Patient History - Infectious Disease Hx of Infectious Diseases: None - Past Social History Smoking Status: Heavy Smoker > 10 Cigarettes Daily - NEUROLOGICAL Hx Migraine: Yes - MUSCULOSKELETAL/RHEUMATOLOGICAL Hx Falls: No - GENITOURINARY/GYNECOLOGICAL Other/Comment: miscarriage - PSYCHIATRIC Hx Substance Use: No - SURGICAL HISTORY Hx Surgeries: No - ANESTHESIA Hx Anesthesia: No Meds Allergies/Adverse Reactions: Allergies Allergy/AdvReac Type Severity Reaction Status Date / Time No Known Allergies Allergy Verified 06/16/18 18:26 - Medications Medications: Current Medications Sodium Chloride (Sodium Chloride 0.9%) 1,000 mls @ 100 mls/hr IV .Q10H [facility] Last Admin: 06/17/18 21:30 Dose: 100 mls/hr Metronidazole (Flagyl) 500 mg in 100 mls @ 100 mls/hr IVPB Q8 [facility] PRN Reason: Protocol Last Admin: 06/18/18 06:48 Dose: 100 mls/hr Ceftriaxone Sodium (Rocephin 1 Gram Ivpb) 1 gm in 100 mls @ 100 mls/hr IVPB DAILY [facility] PRN Reason: Protocol Last Admin: 06/17/18 10:49 Dose: Not Given Morphine Sulfate (Morphine) 2 mg IVP Q4H PRN PRN Reason: Pain, moderate (4-7) Stop: 06/19/18 23:04 Last Admin: 06/18/18 00:27 Dose: 2 mg Ondansetron HCl (Zofran Inj) 4 mg IVP Q6H PRN PRN Reason: Nausea/Vomiting Last Admin: 06/17/18 19:12 Dose: 4 mg Pantoprazole Sodium (Protonix Inj) 40 mg IVP DAILY [facility] Physical Exam - Head Exam Head Exam: ATRAUMATIC, NORMAL INSPECTION, NORMOCEPHALIC - Eye Exam Eye Exam: EOMI, Normal appearance - ENT Exam ENT Exam: Mucous Membranes Moist, Normal Exam - Respiratory Exam Respiratory Exam: Clear to Auscultation Bilateral, NORMAL BREATHING PATTERN - Cardiovascular Exam Cardiovascular Exam: REGULAR RHYTHM, +S1, +S2 - GI/Abdominal Exam GI & Abdominal Exam: Normal Bowel Sounds, Soft, Tenderness (diffuse'). absent: Distended, Firm, Rigid - Rectal Exam Rectal Exam: NORMAL INSPECTION. absent: Deferred, Black Stool, Bloody Stool, Hemorrhoids, Fecal Impaction - Extremities Exam Extremities exam: Positive for: normal inspection - Back Exam Back exam: NORMAL INSPECTION - Neurological Exam Neurological exam: Alert, Oriented x3 - Psychiatric Exam Psychiatric exam: Normal Affect, Normal Mood - Skin Skin Exam: Intact, Normal Color, Warm Results - Vital Signs Recent Vital Signs: Last Vital Signs Temp 98.6 F 06/18/18 06:00 Pulse 70 06/18/18 06:00 Resp 20 06/18/18 06:00 BP 123/70 06/18/18 06:00 Pulse Ox 98 06/18/18 06:00 - Labs Result Diagrams: 06/18/18 06:45 06/18/18 06:45 Labs: Laboratory Results - last 24 hr 06/17/18 06/17/18 06/17/18 06:45 08:00 12:00 WBC RBC Hgb Hct MCV MCH MCHC RDW Plt Count MPV Gran % Lymph % (Auto) [place] % (Auto) Eos % (Auto) Baso % (Auto) Gran # Lymph # (Auto) [place] # (Auto) Eos # (Auto) Baso # (Auto) ESR 33 H Sodium Potassium Chloride Carbon Dioxide Anion Gap BUN Creatinine Est GFR ( Amer) Est GFR (Non-Af Amer) Random Glucose Calcium Total Bilirubin AST ALT Alkaline Phosphatase C-React Prot High Sens > 15.00 H Total Protein Albumin Globulin Albumin/Globulin Ratio Alcohol, Quantitative < 10 06/18/18 06/18/18 06:45 06:45 WBC 6.1 RBC 3.61 Hgb 10.7 L Hct 31.6 L MCV 87.5 MCH 29.6 MCHC 33.9 RDW 12.7 Plt Count 182 MPV 9.8 Gran % 54.6 Lymph % (Auto) 33.3 [place] % (Auto) 8.1 H Eos % (Auto) 3.8 Baso % (Auto) 0.2 Gran # 3.31 Lymph # (Auto) 2.0 [place] # (Auto) 0.5 Eos # (Auto) 0.2 Baso # (Auto) 0.01 ESR Sodium 141 Potassium 3.2 L Chloride 108 H Carbon Dioxide 21 Anion Gap 14 BUN 4 L Creatinine 0.6 L Est GFR ( Amer) > 60 Est GFR (Non-Af Amer) > 60 Random Glucose 86 Calcium 8.1 L Total Bilirubin 0.3 AST 19 ALT 31 Alkaline Phosphatase 79 C-React Prot High Sens Total Protein 6.3 Albumin 3.2 Globulin 3.1 Albumin/Globulin Ratio 1.0 L Alcohol, Quantitative Assessment & Plan - Assessment and Plan (Free Text) Assessment: Patient is a 48 F with a history of migraine headaches who presented with complaints of diarrhea and abdominal pain found to have colitis. Plan: Abdominal pain and diarrhea secondary to colitis most likely of infectious etiology -Continue with rocephin and flagyl -Rectal exam negative -Monitor H&H -Replete electrolytes as needed <Raul,Kovil V - Last Filed: 06/18/18 19:35> Meds - Medications Medications: Current Medications Metronidazole (Flagyl) 500 mg in 100 mls @ 100 mls/hr IVPB Q8 [facility] PRN Reason: Protocol Last Admin: 06/18/18 13:30 Dose: 100 mls/hr Ceftriaxone Sodium (Rocephin 1 Gram Ivpb) 1 gm in 100 mls @ 100 mls/hr IVPB DAILY [facility] PRN Reason: Protocol Last Admin: 06/18/18 10:03 Dose: 100 mls/hr Potassium Chloride 20 meq/ (Sodium Chloride) 1,010 mls @ 100 mls/hr IV .Q10H6M [facility] Last Admin: 06/18/18 10:23 Dose: 100 mls/hr Morphine Sulfate (Morphine) 2 mg IVP Q4H PRN PRN Reason: Pain, moderate (4-7) Stop: 06/19/18 23:04 Last Admin: 06/18/18 17:21 Dose: 2 mg Ondansetron HCl (Zofran Inj) 4 mg IVP Q6H PRN PRN Reason: Nausea/Vomiting Last Admin: 06/17/18 19:12 Dose: 4 mg Pantoprazole Sodium (Protonix Inj) 40 mg IVP DAILY [facility] Last Admin: 06/18/18 10:03 Dose: 40 mg Results - Vital Signs Recent Vital Signs: Last Vital Signs Temp 98.7 F 06/18/18 14:00 Pulse 64 06/18/18 14:00 Resp 18 06/18/18 14:00 BP 127/73 06/18/18 14:00 Pulse Ox 95 06/18/18 14:00 - Labs Result Diagrams: 06/18/18 06:45 06/18/18 06:45 Attending/Attestation - Attestation I have personally seen and examined this patient.: Yes I have fully participated in the care of the patient.: Yes I have reviewed all pertinent clinical information: Yes Notes (Text): This is an addendum to GI consult report dictated by the Project Manager Finance.The patient was seen and evaluated earlier. Medical records, lab studies, imagings were reviewed. Last 24 hours events reviewed. Agreed with the above treatment plan as outlined in Project Manager Finance 's notes with the addition of the following Acute onset of abdominal pain and diarrhea CT scan was reviewed diffuse colitis Clinical picture is more suggestive of infectious colitis Would continue antibiotics Follow-up cultures Clear liquid diet 06/18/18 19:34
--- NOTE | 2018-06-18 08:24 | CP.PCM.PN ---
<Baltazar Rebolledo - Last Filed: 06/18/18 12:56> Subjective - Date & Time of Evaluation Date of Evaluation: 06/18/18 Time of Evaluation: 08:23 - Subjective Subjective: Baltazar Jacomeel DO PGY1 Internal Medicine [employer] - Hospital Progress Note Pt. seen and examined at bedside this morning. She reported some improvement from admission however, she still states that abdominal pain comes and goes. Admits to some nausea and x1 episode of NBNB vomit yesterday. Diarrhea improving; presenting more so as soft stools mixed with water. No issue w/ CLD however we will continue to monitor tolerance to full liquid diet. 12 system ROS otherwise unremarkable. Objective - Vital Signs/Intake and Output Vital Signs (last 24 hours): Temp Pulse Resp BP Pulse Ox 98.6 F 70 20 123/70 98 06/18/18 06:00 06/18/18 06:00 06/18/18 06:00 06/18/18 06:00 06/18/18 06:00 Intake and Output: 06/18/18 06/18/18 06:59 18:59 Intake Total 2580 Balance 2580 - Medications Medications: Current Medications Sodium Chloride (Sodium Chloride 0.9%) 1,000 mls @ 100 mls/hr IV .Q10H [facility] Last Admin: 06/17/18 21:30 Dose: 100 mls/hr Metronidazole (Flagyl) 500 mg in 100 mls @ 100 mls/hr IVPB Q8 [facility]STOP[facility] PRN Reason: Protocol Last Admin: 06/18/18 06:48 Dose: 100 mls/hr Ceftriaxone Sodium (Rocephin 1 Gram Ivpb) 1 gm in 100 mls @ 100 mls/hr IVPB DAILY [facility] PRN Reason: Protocol Last Admin: 06/17/18 10:49 Dose: Not Given Morphine Sulfate (Morphine) 2 mg IVP Q4H PRN PRN Reason: Pain, moderate (4-7) Stop: 06/19/18 23:04 Last Admin: 06/18/18 00:27 Dose: 2 mg Ondansetron HCl (Zofran Inj) 4 mg IVP Q6H PRN PRN Reason: Nausea/Vomiting Last Admin: 06/17/18 19:12 Dose: 4 mg Pantoprazole Sodium (Protonix Inj) 40 mg IVP DAILY [facility] - Labs Labs: 06/18/18 06:45 06/18/18 06:45 Physical Exam - Constitutional Appears: Non-toxic, In no Acute Distress - Head Exam Head Exam: ATRAUMATIC, NORMAL INSPECTION, NORMOCEPHALIC - Eye Exam Eye Exam: EOMI, Normal appearance, PERRL Pupil Exam: NORMAL ACCOMODATION, PERRL - ENT Exam ENT Exam: Mucous Membranes Dry, Normal Oropharynx - Neck Exam Neck exam: Positive for: Normal Inspection - Respiratory Exam Respiratory Exam: Clear to Auscultation Bilateral, NORMAL BREATHING PATTERN - Cardiovascular Exam Cardiovascular Exam: REGULAR RHYTHM, +S1, +S2 - GI/Abdominal Exam GI & Abdominal Exam: Normoactive bowel sounds; LLQ tenderness/ LUQ tenderness; no masses palpated; abodmen soft, nondistended. - Extremities Exam Extremities exam: Negative for: calf tenderness, joint swelling, tenderness - Back Exam Back exam: NORMAL INSPECTION - Neurological Exam Neurological exam: Alert, CN II-XII Intact, Normal Gait, Oriented x3, Reflexes Normal - Skin Skin Exam: Dry, Intact, Normal Color, Warm Assessment and Plan - Assessment and Plan (Free Text) Assessment: 48 y/o female with no significant PMHx presents to the ED for abdominal pain x1 day with N/V/D. CT abdomen from previous day prior to presentation showed colitis throughout the colon. Plan: Colitis -CT abd/pelvis w/o contrast showed: There is mural thickening throughout the colon consistent with colitis. This may be a chronic finding with fatty deposition in the wall of the colon. Clinical correlation is suggested. -Patient still with loose stools however reports some solid fecal matter mixed with liquid; Still reporting some minimal abdominal tenderness. -Tolerating clear liquid diet well; will advance to full liquids today -C/w metronidazole 500mg iv q8h -C/w ceftriaxone 1g ivp qd -Morphine 2mg ivp q4h prn for pain -zofran 4mg ivp q6h prn for nausea/vomiting -esr elevated, cdiff negative, uds negative (collected after receiving morphine in ED thus positive for opiates), serum alcohol negative, lipase negative -follow-up crp, stool culture, fecal leukocytes -GI following, Dr Carter Bright red blood per rectum: Patient asymptomatic, hemodynamically stable, H/H stable as well. -stool occult positive * denies blood in stool, admits to streaks of blood on toilet paper -GI following Hypokalemia -Still unresolved at this time; repleted again; Mag levels wnl -repleted, follow-up AM levels GI/ DVT Prophylaxis Protonix 40mg iv qd /SCD Dispo: Patient status changed from obs to inpatient, as we will require more time to continue further management and workup of colitis; r/o GI bleed. Patient seen, examined, and case discussed with attending physician Dr. Rg Rebolledo DO PGY1 Internal Medicine [employer] - Pager [phone] <Tasha Diez - Last Filed: 06/20/18 16:17> Objective - Vital Signs/Intake and Output Vital Signs (last 24 hours): Temp Pulse Resp BP Pulse Ox 98.5 F 62 16 146/92 H 96 06/19/18 14:00 06/19/18 14:00 06/19/18 14:00 06/19/18 14:00 06/19/18 14:00 - Labs Labs: 06/19/18 06:20 06/19/18 06:20 Attending/Attestation - Attestation I have personally seen and examined this patient.: Yes I have fully participated in the care of the patient.: Yes I have reviewed all pertinent clinical information, including history, physical exam and plan: Yes Notes (Text): 06/20/18 16:17 Medical record note made by the resident after discussion with my direction and input after the patient was personally seen and examined by me. I have reviewed the chart and agree that the record accurately reflects by personal performance of the history, physical exam, data review, and medical decision-making, in the course for the patient. I have also personally directed the plan of care.
[2018-06-18] MEDS ORDERED: POLYETHYLENE GLYCOL 3350 17 GM/Dose PACKET PO SCH (10:00)
[2018-06-18] MEDS: cefTRIAXone 1 gm 1 GM/100 ML BAG IVPB SCH (10:03)
[2018-06-19] MEDS: metroNIDAZOLE IV 500 mg/100 ml 500 MG/100 ML BAG IVPB SCH ×2 (05:40→14:17)
[2018-06-19 06:57] LABS: BASO # 0.02 K/mm3 (0.0-2.0); BASO % 0.4 % (0.0-3.0); EOS # 0.3 (0.0-0.7); EOS % 5.7 % (1.5-5.0); GRAN # 2.3 (1.4-6.5); GRAN % 45.1 % (50.0-68.0); LYMPH # 2.1 (1.2-3.4); MEAN CELL VOLUME 86.1 fl (80.0-105.0); MEAN CORPUSCULAR HGB CONC 34.8 g/dl (31.0-37.0); MEAN PLATELET VOLUME 9.4 fl (7.0-11.0); MONO # 0.4 (0.1-0.6); MONO % 7.8 % (1.0-6.0); RBC 3.67 10^6/uL (3.5-6.1); RED CELL DISTRIBUTION WIDTH 12.7 % (11.5-14.5); WHITE BLOOD COUNT 5.1 10^3/ul (4.5-11.0)
[2018-06-19 08:00] LABS: ALBUMIN 3.1 g/dL (3.0-4.8); BLOOD UREA NITROGEN 3 mg/dL (7-21); CALCIUM 8.1 mg/dL (8.4-10.5); GFR AFRICAN-AMERICAN > 60; GFR NON-AFRICAN AMERICAN > 60
[2018-06-19 08:01] LABS: ALT/SGPT 25 U/L (7-56); AST/SGOT 19 U/L (14-36)
[2018-06-19] MEDS: cefTRIAXone 1 gm 1 GM/100 ML BAG IVPB SCH (09:16)
[2018-06-19] MEDS: Morphine 2 mg/ml ISec IVP PRN (09:25)
--- NOTE | 2018-06-19 09:40 | CP.PCM.PN ---
Subjective - Date & Time of Evaluation Date of Evaluation: 06/19/18 Time of Evaluation: 06:00 - Subjective Subjective: [employer] Progress note for Dr. Raul Rowan PGY2 Patient seen and examined at bedside in no acute distress. Patient states her abdominal pain has improved. Patient did not make any bowel movements overnight not did she require pain medications overnight as per nursing staff. Patient denies fevers, chills, abdominal pain, nausea, vomiting, diarrhea, shortness of breath, chest pain, headache, cough. Objective - Vital Signs/Intake and Output Vital Signs (last 24 hours): Temp Pulse Resp BP Pulse Ox 98.3 F 61 18 132/70 98 06/19/18 06:00 06/19/18 06:00 06/19/18 06:00 06/19/18 06:00 06/19/18 06:00 Intake and Output: 06/19/18 06/19/18 06:59 18:59 Intake Total 2400 Balance 2400 - Medications Medications: Current Medications Metronidazole (Flagyl) 500 mg in 100 mls @ 100 mls/hr IVPB Q8 CHRISTOPH PRN Reason: Protocol Last Admin: 06/19/18 05:40 Dose: 100 mls/hr Ceftriaxone Sodium (Rocephin 1 Gram Ivpb) 1 gm in 100 mls @ 100 mls/hr IVPB DAILY [facility] PRN Reason: Protocol Last Admin: 06/19/18 09:16 Dose: 100 mls/hr Potassium Chloride 20 meq/ (Sodium Chloride) 1,010 mls @ 100 mls/hr IV .Q10H6M [facility] Last Admin: 06/19/18 05:41 Dose: 100 mls/hr Morphine Sulfate (Morphine) 2 mg IVP Q4H PRN PRN Reason: Pain, moderate (4-7) Stop: 06/19/18 23:04 Last Admin: 06/19/18 09:25 Dose: 2 mg Ondansetron HCl (Zofran Inj) 4 mg IVP Q6H PRN PRN Reason: Nausea/Vomiting Last Admin: 06/17/18 19:12 Dose: 4 mg Pantoprazole Sodium (Protonix Inj) 40 mg IVP DAILY [facility] Last Admin: 06/19/18 09:16 Dose: 40 mg - Labs Labs: 06/19/18 06:20 08/07/18 06:20 - Constitutional Appears: Non-toxic, No Acute Distress - Head Exam Head Exam: ATRAUMATIC, NORMAL INSPECTION, NORMOCEPHALIC - Eye Exam Eye Exam: EOMI - ENT Exam ENT Exam: Mucous Membranes Moist - Respiratory Exam Respiratory Exam: Clear to Ausculation Bilateral, NORMAL BREATHING PATTERN. absent: Rhonchi, Wheezes - Cardiovascular Exam Cardiovascular Exam: REGULAR RHYTHM, +S1, +S2 - GI/Abdominal Exam GI & Abdominal Exam: Soft, Normal Bowel Sounds - Extremities Exam Extremities Exam: Normal Inspection - Back Exam Back Exam: NORMAL INSPECTION - Neurological Exam Neurological Exam: Alert, Awake, Oriented x3 - Psychiatric Exam Psychiatric exam: Normal Affect, Normal Mood - Skin Skin Exam: Intact, Normal Color, Warm Assessment and Plan - Assessment and Plan (Free Text) Assessment: Patient is a 48 F with a history of migraine headaches who presented with complaints of diarrhea and abdominal pain found to have colitis. Plan: Abdominal pain and diarrhea secondary to colitis most likely of infectious etiology -Continue with rocephin and flagyl day #3 -Rectal exam negative -H&H improving; continue to monitor -C. diff studies negative -Replete electrolytes as needed
[2018-06-19] MEDS ORDERED: Potassium Chloride 20 mEq ER Tab PO SCH (09:45)
[2018-06-19 14:32] VITALS: BP 146/92; PULSE 62; RESP 16; TEMP 98.5; O2SAT 96
--- NOTE | 2018-06-19 21:51 | CP.PCM.DIS ---
<Baltazar Rebolledo - Last Filed: 06/19/18 22:08> Provider - Provider Date of Admission: 06/18/18 13:20 Attending physician: Tasha Diez MD Primary care physician: Tasha Capps Consults: Gastroenterology - Evan Lieberman Time Spent in preparation of Discharge (in minutes): 40 Diagnosis - Discharge Diagnosis (1) Colitis Status: Acute Priority: High (2) Hypokalemia Status: Acute Priority: Medium (3) Nausea vomiting and diarrhea Status: Acute Priority: Medium Hospital Course - Lab Results Lab Results: Most Recent Lab Values WBC 5.1 10^3/ul (4.5-11.0) 06/19/18 06:20 RBC 3.67 10^6/uL (3.5-6.1) 06/19/18 06:20 Hgb 11.0 g/dL (12.0-16.0) L 06/19/18 06:20 Hct 31.6 % (36.0-48.0) L 06/19/18 06:20 MCV 86.1 fl (80.0-105.0) 06/19/18 06:20 MCH 30.0 pg (25.0-35.0) 06/19/18 06:20 MCHC 34.8 g/dl (31.0-37.0) 06/19/18 06:20 RDW 12.7 % (11.5-14.5) 06/19/18 06:20 Plt Count 183 10^3/uL (120.0-450.0) 06/19/18 06:20 MPV 9.4 fl (7.0-11.0) 06/19/18 06:20 Gran % 45.1 % (50.0-68.0) L 06/19/18 06:20 Lymph % (Auto) 41.0 % (22.0-35.0) H 06/19/18 06:20 Pickett % (Auto) 7.8 % (1.0-6.0) H 06/19/18 06:20 Eos % (Auto) 5.7 % (1.5-5.0) H 06/19/18 06:20 Baso % (Auto) 0.4 % (0.0-3.0) 06/19/18 06:20 Gran # 2.30 (1.4-6.5) 06/19/18 06:20 Lymph # (Auto) 2.1 (1.2-3.4) 06/19/18 06:20 Pickett # (Auto) 0.4 (0.1-0.6) 06/19/18 06:20 Eos # (Auto) 0.3 (0.0-0.7) 06/19/18 06:20 Baso # (Auto) 0.02 K/mm3 (0.0-2.0) 06/19/18 06:20 ESR 33 mm/hr (0.0-20.0) H 06/17/18 06:45 Sodium 141 mmol/L (132-148) 06/19/18 06:20 Potassium 3.3 mmol/L (3.6-5.0) L 06/19/18 06:20 Chloride 108 mmol/L (98-107) H 06/19/18 06:20 Carbon Dioxide 23 mmol/L (21-33) 06/19/18 06:20 Anion Gap 13 (10-20) 06/19/18 06:20 BUN 3 mg/dL (7-21) L 06/19/18 06:20 Creatinine 0.5 mg/dl (0.7-1.2) L 06/19/18 06:20 Est GFR ( Amer) > 60 06/19/18 06:20 Est GFR (Non-Af Amer) > 60 06/19/18 06:20 Random Glucose 94 mg/dL (70-110) 06/19/18 06:20 Calcium 8.1 mg/dL (8.4-10.5) L 06/19/18 06:20 Phosphorus 2.5 mg/dL (2.5-4.5) 06/17/18 06:45 Magnesium 2.0 mg/dL (1.7-2.2) 06/19/18 06:20 Total Bilirubin 0.3 mg/dL (0.2-1.3) 06/19/18 06:20 AST 19 U/L (14-36) 06/19/18 06:20 ALT 25 U/L (7-56) 06/19/18 06:20 Alkaline Phosphatase 73 U/L (38-126) 06/19/18 06:20 C-React Prot High Sens > 15.00 mg/L (1.00-3.00) H 06/17/18 08:00 Total Protein 6.3 g/dL (5.8-8.3) 06/19/18 06:20 Albumin 3.1 g/dL (3.0-4.8) 06/19/18 06:20 Globulin 3.1 gm/dL 06/19/18 06:20 Albumin/Globulin Ratio 1.0 (1.1-1.8) L 06/19/18 06:20 Lipase 49 U/L (23-300) 06/16/18 18:55 Urine Color Yellow (YELLOW) 06/16/18 23:10 Urine Appearance Sl cloudy (CLEAR) 06/16/18 23:10 Urine pH 6.0 (4.7-8.0) 06/16/18 23:10 Ur Specific Woodman >= 1.030 (1.005-1.035) 06/16/18 23:10 Urine Protein 30 mg/dL (<30 mg/dL) H 06/16/18 23:10 Urine Glucose (UA) Negative mg/dL (NEGATIVE) 06/16/18 23:10 Urine Ketones 15 mg/dL (NEGATIVE) H 06/16/18 23:10 Urine Blood Trace-intact (NEGATIVE) H 06/16/18 23:10 Urine Nitrate Positive (NEGATIVE) H 06/16/18 23:10 Urine Bilirubin Small (NEGATIVE) H 06/16/18 23:10 Urine Urobilinogen 0.2 E.U./dL (<1 E.U./dL) 06/16/18 23:10 Ur Leukocyte Esterase Negative Mat/uL (NEGATIVE) 06/16/18 23:10 Urine RBC 1 - 3 /hpf (0-2) 06/16/18 23:10 Urine WBC 0 - 2 /hpf (0-6) 06/16/18 23:10 Ur Epithelial Cells 4 - 5 /hpf (0-5) 06/16/18 23:10 Urine Bacteria Mod (NEG) 06/16/18 23:10 Stool Occult Blood Positive (NEGATIVE) H 06/17/18 00:20 Stool Leukocytes, Qual Positive (NEGATIVE) H 06/17/18 00:20 Urine Opiates Screen Positive (NEGATIVE) H 08/05/18 06:05 Urine Methadone Screen Negative (NEGATIVE) 06/17/18 06:05 Ur Barbiturates Screen Negative (NEGATIVE) 06/17/18 06:05 Ur Phencyclidine Scrn Negative (NEGATIVE) 06/17/18 06:05 Ur Amphetamines Screen Negative (NEGATIVE) 06/17/18 06:05 U Benzodiazepines Scrn Negative (NEGATIVE) 06/17/18 06:05 U Oth Cocaine Metabols Negative (NEGATIVE) 06/17/18 06:05 U Cannabinoids Screen Negative (NEGATIVE) 06/17/18 06:05 Alcohol, Quantitative < 10 mg/dL (0-10) 06/17/18 12:00 - Hospital Course Hospital Course: Baltazar Rebolledo DO PGY1 Internal Medicine [employer] - Hospital Discharge Summary History of Present Illness: 48 y/o female presented to the ED for mid abdominal pain for 3 days, 06/22, squeezing, no radiation, intermittent, no worsening or alleviating factors. Pain was associated with nausea, NBNB vomiting , watery diarrhea. Patient admitted to having URI symptoms few days prior to these symptoms. She denied having similar symptoms in the past, no recent travel , no sick contacts but admitted to having a dog, cat, turtle, and fish at her home. [place] [facility] [place] the same symptoms but refused admission and signed AMA as she had animals at home to feed. Patient left ED with Metronidazole prescription and took one dose that caused her upset stomach and visit to ED again. CT abdomen/pelvis done prior showed colitis. Patient denied symptoms, fever, chills, hematemesis, hematochezia, chest pain , palpitation, rash, weight loss. Hospital Course: This is a 48 year old female with no significant PMH who [place] [facility] [place] with associated nausea, vomiting, and diarrhea. 06/15 CT abd/ pelvis w/o contrast showed mural thickening throughout the colon consistent with colitis. May be chronic with fatty deposition in the wall of the colon. She was given Zofran for the nausea, and Morphine 2mg IVP for the pain. C.diff toxin assay, urinary drug screen, and lipase were negative. Patients diet was advanced to full liquids, GI was following. Patient also had complaints of bright red blood in rectum, and admitted to having streaks of blood on toilet paper. Stool occult was positive. Patient was hemodynamically stable, with stable H/H. The patient has been having low potassium levels (3.3) for several days, has been given Potassium Chloride 40 meq PO, hypokalemia still unresolved at this time. She will need follow up BMP within 1 week of discharge Morning prior to discharge, she was tolerating CLD well, and was voicing complaints of diarrhea composed mostly of pasty/ loose stools. No overt diarrhea. Upon time of discharge patient was found to tolerate soft PO diet well w/o any complaints of increased abd pain, N/V/D. Discharge Medications: Metronidazole 500mg TID, Ciprofloxacin 500mg BID Discharge Instructions: Patient is instructed to follow up with her GI physician and schedule a colonoscopy in 6-8 weeks. She was also given the following instructions below: - You were admitted for colitis - You are medically stable at this time for discharge - Please follow up with your primary care doctor, Dr. Lara, Within 7 days of discharge - Please follow up with gastroenterology doctor, Dr. Carter - Please start taking ciprofloxacin 500mg twice a day for a total of 10 days - Please start taking metronidazole 500mg three times a day for a total of 10 days - Please continue eating a soft diet for the next 3-4 days - Please avoid eating milk based food/ dairy as you are lactose intolerant - You will continue to have tenderness for some time, please return to the nearest emergency department if your symptoms worsen; or you can no longer tolerate any oral diet Patient was medically stable and optimized at time of discharge. - Date & Time of H&P Date of H&P: 06/16/18 Time of H&P: 21:55 Discharge Exam - Head Exam Head Exam: ATRAUMATIC, NORMAL INSPECTION, NORMOCEPHALIC - Eye Exam Eye Exam: EOMI, PERRL. absent: Scleral icterus Pupil Exam: PERRL - ENT Exam ENT Exam: Mucous Membranes Moist - Respiratory Exam Respiratory Exam: Clear to PA & Lateral, NORMAL BREATHING PATTERN, UNREMARKABLE. absent: Wheezes - Cardiovascular Exam Cardiovascular Exam: RRR, +S1, +S2 - GI/Abdominal Exam GI & Abdominal Exam: Normal Bowel Sounds, Tenderness (RLQ/LLQ ) - Extremities Exam Extremities exam: pedal pulses present (2+ TP/DP BL) - Back Exam Back exam: absent: CVA tenderness (L), CVA tenderness (R) - Neurological Exam Neurological exam: Alert, CN II-XII Intact, Oriented x3 - Psychiatric Exam Psychiatric exam: Normal Affect, Normal Mood - Skin Skin Exam: Dry, Intact, Normal Color, Warm Discharge Plan - Discharge Medications Prescriptions: Ciprofloxacin [Cipro] 500 mg PO BID 10 Days #20 tab metroNIDAZOLE [Flagyl] 500 mg PO TID 10 Days #30 tab - Follow Up Plan Condition: GOOD Disposition: HOME/ ROUTINE Instructions: Irritable Bowel Syndrome Additional Instructions: - You were admitted for colitis - You are medically stable at this time for discharge - Please follow up with your primary care doctor, Dr. Lara, Within 7 days of discharge - Please follow up with gastroenterology doctor, Dr. Carter - Please start taking ciprofloxacin 500mg twice a day for a total of 10 days - Please start taking metronidazole 500mg three times a day for a total of 10 days - Please continue eating a soft diet for the next 3-4 days - Please avoid eating milk based food/ dairy as you are lactose intolerant - You will continue to have tenderness for some time, please return to the nearest emergency department if your symptoms worsen; or you can no longer tolerate any oral diet Referrals: Evan Carter MD [Medical Doctor] - <Tasha Diez - Last Filed: 06/20/18 16:20> Provider - Provider Date of Admission: 06/18/18 13:20 Attending physician: Tasha Diez MD Hospital Course - Lab Results Lab Results: Most Recent Lab Values WBC 5.1 10^3/ul (4.5-11.0) 06/19/18 06:20 RBC 3.67 10^6/uL (3.5-6.1) 06/19/18 06:20 Hgb 11.0 g/dL (12.0-16.0) L 06/19/18 06:20 Hct 31.6 % (36.0-48.0) L 06/19/18 06:20 MCV 86.1 fl (80.0-105.0) 06/19/18 06:20 MCH 30.0 pg (25.0-35.0) 06/19/18 06:20 MCHC 34.8 g/dl (31.0-37.0) 06/19/18 06:20 RDW 12.7 % (11.5-14.5) 06/19/18 06:20 Plt Count 183 10^3/uL (120.0-450.0) 06/19/18 06:20 MPV 9.4 fl (7.0-11.0) 06/19/18 06:20 Gran % 45.1 % (50.0-68.0) L 06/19/18 06:20 Lymph % (Auto) 41.0 % (22.0-35.0) H 06/19/18 06:20 Pickett % (Auto) 7.8 % (1.0-6.0) H 06/19/18 06:20 Eos % (Auto) 5.7 % (1.5-5.0) H 06/19/18 06:20 Baso % (Auto) 0.4 % (0.0-3.0) 06/19/18 06:20 Gran # 2.30 (1.4-6.5) 06/19/18 06:20 Lymph # (Auto) 2.1 (1.2-3.4) 06/19/18 06:20 Pickett # (Auto) 0.4 (0.1-0.6) 06/19/18 06:20 Eos # (Auto) 0.3 (0.0-0.7) 06/19/18 06:20 Baso # (Auto) 0.02 K/mm3 (0.0-2.0) 06/19/18 06:20 ESR 33 mm/hr (0.0-20.0) H 06/17/18 06:45 Sodium 141 mmol/L (132-148) 06/19/18 06:20 Potassium 3.3 mmol/L (3.6-5.0) L 06/19/18 06:20 Chloride 108 mmol/L (98-107) H 06/19/18 06:20 Carbon Dioxide 23 mmol/L (21-33) 06/19/18 06:20 Anion Gap 13 (10-20) 06/19/18 06:20 BUN 3 mg/dL (7-21) L 06/19/18 06:20 Creatinine 0.5 mg/dl (0.7-1.2) L 06/19/18 06:20 Est GFR ( Amer) > 60 06/19/18 06:20 Est GFR (Non-Af Amer) > 60 06/19/18 06:20 Random Glucose 94 mg/dL (70-110) 06/19/18 06:20 Calcium 8.1 mg/dL (8.4-10.5) L 06/19/18 06:20 Phosphorus 2.5 mg/dL (2.5-4.5) 06/17/18 06:45 Magnesium 2.0 mg/dL (1.7-2.2) 06/19/18 06:20 Total Bilirubin 0.3 mg/dL (0.2-1.3) 06/19/18 06:20 AST 19 U/L (14-36) 06/19/18 06:20 ALT 25 U/L (7-56) 06/19/18 06:20 Alkaline Phosphatase 73 U/L (38-126) 06/19/18 06:20 C-React Prot High Sens > 15.00 mg/L (1.00-3.00) H 06/17/18 08:00 Total Protein 6.3 g/dL (5.8-8.3) 06/19/18 06:20 Albumin 3.1 g/dL (3.0-4.8) 06/19/18 06:20 Globulin 3.1 gm/dL 06/19/18 06:20 Albumin/Globulin Ratio 1.0 (1.1-1.8) L 06/19/18 06:20 Lipase 49 U/L (23-300) 06/16/18 18:55 Urine Color Yellow (YELLOW) 06/16/18 23:10 Urine Appearance Sl cloudy (CLEAR) 06/16/18 23:10 Urine pH 6.0 (4.7-8.0) 06/16/18 23:10 Ur Specific Woodman >= 1.030 (1.005-1.035) 06/16/18 23:10 Urine Protein 30 mg/dL (<30 mg/dL) H 06/16/18 23:10 Urine Glucose (UA) Negative mg/dL (NEGATIVE) 06/16/18 23:10 Urine Ketones 15 mg/dL (NEGATIVE) H 06/16/18 23:10 Urine Blood Trace-intact (NEGATIVE) H 06/16/18 23:10 Urine Nitrate Positive (NEGATIVE) H 06/16/18 23:10 Urine Bilirubin Small (NEGATIVE) H 06/16/18 23:10 Urine Urobilinogen 0.2 E.U./dL (<1 E.U./dL) 06/16/18 23:10 Ur Leukocyte Esterase Negative Mat/uL (NEGATIVE) 06/16/18 23:10 Urine RBC 1 - 3 /hpf (0-2) 06/16/18 23:10 Urine WBC 0 - 2 /hpf (0-6) 06/16/18 23:10 Ur Epithelial Cells 4 - 5 /hpf (0-5) 06/16/18 23:10 Urine Bacteria Mod (NEG) 06/16/18 23:10 Stool Occult Blood Positive (NEGATIVE) H 06/17/18 00:20 Stool Leukocytes, Qual Positive (NEGATIVE) H 06/17/18 00:20 Urine Opiates Screen Positive (NEGATIVE) H 06/17/18 06:05 Urine Methadone Screen Negative (NEGATIVE) 06/17/18 06:05 Ur Barbiturates Screen Negative (NEGATIVE) 06/17/18 06:05 Ur Phencyclidine Scrn Negative (NEGATIVE) 06/17/18 06:05 Ur Amphetamines Screen Negative (NEGATIVE) 06/17/18 06:05 U Benzodiazepines Scrn Negative (NEGATIVE) 06/17/18 06:05 U Oth Cocaine Metabols Negative (NEGATIVE) 06/17/18 06:05 U Cannabinoids Screen Negative (NEGATIVE) 06/17/18 06:05 Alcohol, Quantitative < 10 mg/dL (0-10) 06/17/18 12:00 Attending/Attestation - Attestation I have personally seen and examined this patient.: Yes I have fully participated in the care of the patient.: Yes I have reviewed all pertinent clinical information, including history, physical exam and plan: Yes Notes (Text): 06/20/18 16:20 Medical record note made by the resident after discussion with my direction and input after the patient was personally seen and examined by me. I have reviewed the chart and agree that the record accurately reflects by personal performance of the history, physical exam, data review, and medical decision-making, in the course for the patient. I have also personally directed the plan of care. 48 y/o female with no significant PMH of presents to the ED for abdominal pain x1 day with N/V/D. CT abdomen from previous day prior to presentation showed colitis throughout the colon. Patient was treated with IV antibiotics, she was initially kept, and Diet was advanced gradually. Patient abdominal pain has improved.She is tolerating soft diet. She will be discharged home on oral ciprofloxacin and Flagyl.She will need out Patient Colonoscopy.This was discussed in detail with her. Patient will follow up with PCP and GI. Management plan was discussed in detail with patient. Education was provided.
== END 2018-06-19 18:31 | disposition home or self-care (01) | DRG 813 ==
LOC: ED 18:16 → ERH 20:11 → 5RNO 23:49 → OBSVTOIN 06-18 13:20 → 5RNO 06-19 00:28
PROVIDERS: ADMIT Internal Medicine; ATTEND Internal Medicine
DX: K52.9 Noninfective gastroenteritis and colitis, unspecified (principal); E87.6 Hypokalemia; F17.210 Nicotine dependence, cigarettes, uncomplicated